=== PATIENT | female | born 1940 | race Caucasian/White ===

== ENCOUNTER 2017-07-07 05:45 | Day surgery (SDC) | payer OTHER ==
[~2017-07-07 05:45] MED LIST: ASA81 MG PO; BISOPROLOL-HCT1 EAC2 PO; CALCIUM500 M1 PO; DAFLONEX-XL TA1 EACH PO; DIABETES HEALT1 EAC2 PO; IRBESARTAN-HCT1 EACH PO; SIMVASTATIN20 MG PO; VITAMIN D5000 UNIT PO
== END 2017-07-07 11:00 | disposition home or self-care (01) ==
LOC: CIR.AMB 05:45 → EDBD 08:00 → CIR.AMB 09:00
DX: G56.02 Carpal tunnel syndrome, left upper limb (principal); M65.322 Trigger finger, left index finger; M65.332 Trigger finger, left middle finger; M65.352 Trigger finger, left little finger

== ENCOUNTER 2019-04-19 05:35 | Day surgery (SDC) | payer OTHER ==
[~2019-04-19 05:35] MED LIST changes: +AVALIDE 300-121 EACH; +DIALYVITE 800-1 EACH PO; +REQUIP0.25 MG PO; +ZOCOR20 MG PO; +[UNRECOGNIZED DRUG - OTHER] PO; +plaquenil PO
== END 2019-04-19 13:00 | disposition home or self-care (01) ==
LOC: CIR.AMB 05:35 → ADM 07:30 → CIR.AMB 07:30
DX: M19.041 Primary osteoarthritis, right hand (principal); G56.01 Carpal tunnel syndrome, right upper limb